=== PATIENT | female | born 1970 | race American Indian/Alaskan Native ===

== ENCOUNTER 2016-11-22 16:50 | Emergency (ER) | payer BC ==
[2016-11-22 16:57] VITALS: BMI 45.8
[2016-11-22 17:02] VITALS: BP 147/100; PULSE 98; RESP 19; TEMP 99; O2SAT 96
--- NOTE | 2016-11-22 17:50 | ED PDOC ---
Arrival/HPI - General Chief Complaint: Finger,Hand,&Wrist Time Seen by Provider: 11/22/16 17:05 Historian: Patient - History of Present Illness Narrative History of Present Illness (Text): 11/22/16 17:41 This is a very pleasant 46 AA F PMHx HTN, HLD, Borderline DM, and fibroids c/o R thumb swelling. Patient states that she woke up on Sunday with crampy, non radiating pain of 5/10 severity, for which she did not take anything at home. She woke up this morning with mild swelling in her R thumb as well as the pain. She was able to go to work today - she uses a computer at work and was able to effectively perform all of her tasks. Patient states that she has full ROM in her thumb. Pt denies f/ch associated with the swelling and pain. No further complaints PMD: Dr. Chance Christensen at [facility] [place] 11/22/16 18:07 Past Medical History - Infectious Disease Hx of Infectious Diseases: None - Cardiac Hx Cardiac Disorders: Yes Hx Hypertension: Yes - Pulmonary Hx Respiratory Disorders: No - Neurological Hx Neurological Disorder: No - HEENT Hx HEENT Disorder: No - Renal Hx Renal Disorder: No - Endocrine/Metabolic Hx Endocrine Disorders: No - Hematological/Oncological Hx Blood Disorders: No - Integumentary Hx Dermatological Disorder: No - Musculoskeletal/Rheumatological Hx Musculoskeletal Disorders: No - Gastrointestinal Hx Gastrointestinal Disorders: No - Genitourinary/Gynecological Hx Genitourinary Disorders: No - Psychiatric Hx Psychophysiologic Disorder: Yes Hx Substance Use: No Other/Comment: fibroids - Anesthesia Hx Anesthesia: No Family/Social History - Physician Review Nursing Documentation Reviewed: Yes Family/Social History: Diabetes, Hypertension Smoking Status: Never Smoked Hx Alcohol Use: Yes Frequency of alcohol use: Socially Hx Substance Use: No Allergies/Home Meds Allergies/Adverse Reactions: Allergies No Known Allergies Allergy (Verified 11/22/16 16:57) Home Medications: Home Meds Medication Instructions Recorded Confirmed Rosuvastatin Calcium [Crestor] 5 mg PO DAILY 11/22/16 11/22/16 Review of Systems - Physician Review All systems were reviewed & negative as marked: Yes - Review of Systems Constitutional: Normal. absent: Weight Change, Fevers, Night Sweats Eyes: Normal. absent: Vision Changes, Photophobia ENT: Normal. absent: Hearing Changes, TMJ Pain, Sinus Congestion Respiratory: Normal. absent: SOB, Cough, Sputum, Wheezing Cardiovascular: Normal. absent: Chest Pain, Palpitations, Edema, Calf Pain, MALIK Gastrointestinal: Normal. absent: Abdominal Pain, Diarrhea, Nausea, Vomiting Genitourinary Female: Normal. absent: Dysuria, Frequency, Hematuria Musculoskeletal: Other (thumb swelling and pain). absent: Arthralgias, Back Pain, Neck Pain Skin: Normal. absent: Pruritis, Laceration, Abscess Neurological: Normal. absent: Headache, Dizziness, Focal Weakness Endocrine: Normal. absent: Diaphoresis, Polyuria, Polydipsia Hemo/Lymphatic: Normal. absent: Adenopathy, Easy Bleeding, Easy Bruising Psychiatric: Normal. absent: Anxiety, Depression Physical Exam Vital Signs Reviewed: Yes Vital Signs Temp Pulse Resp BP Pulse Ox 11/22/16 17:00 99.0 F 98 H 19 147/100 H 96 Temperature: Afebrile Blood Pressure: Hypertensive Pulse: Regular Respiratory Rate: Normal Appearance: Positive for: Well-Appearing, Non-Toxic, Comfortable Pain Distress: None Mental Status: Positive for: Alert and Oriented X 3 - Systems Exam Head: Present: Atraumatic, Normocephalic Pupils: Present: PERRL Extroacular Muscles: Present: EOMI Conjunctiva: Present: Normal Mouth: Present: Moist Mucous Membranes Neck: Present: Normal Range of Motion Respiratory/Chest: Present: Clear to Auscultation, Good Air Exchange. No: Respiratory Distress, Accessory Muscle Use Cardiovascular: Present: Regular Rate and Rhythm, Normal S1, S2. No: Murmurs Abdomen: Present: Normal Bowel Sounds. No: Tenderness, Distention, Peritoneal Signs Back: Present: Normal Inspection Upper Extremity: Present: Other (R thumb mild erythema on anterior aspect, mild edema around PIP joint, mild TTP Patient still has full ROM, no tenderness with flexion/extension of the thumb.). No: Cyanosis, Edema Lower Extremity: Present: Normal Inspection. No: Edema Neurological: Present: GCS=15, CN II-XII Intact, Speech Normal Skin: Present: Warm, Dry, Normal Color. No: Rashes Psychiatric: Present: Alert, Oriented x 3, Normal Insight, Normal Concentration Medical Decision Making ED Course and Treatment: Assessed 11/22/16 17:00 Impression: 46 F w/ PMhx HTN HLD presents with 3 day duration of thumb pain and 1 day duration of mild thumb swelling Plan: - Toradol for pain stat - Reassess Reassessed 11/22/16 18:16 - Pain improved - Send patient home on Naproxen for pain - Send patient home on Clindamycin for empiric therapy - Instruct patient to follow up with PMD - Presentation not consistent with flexor tendon tenosynovitis at this time - patient cautioned and instructed on return precautions - Patient d/c home 11/22/16 18:41 - Medication Orders Current Medication Orders: Discontinued Medications Ketorolac Tromethamine (Toradol) 10 mg IM STAT STA Stop: 11/22/16 17:39 Last Admin: 11/22/16 17:44 Dose: 10 mg Disposition/Present on Arrival - Present on Arrival Any Indicators Present on Arrival: No History of DVT/PE: No History of Uncontrolled Diabetes: No Urinary Catheter: No History of Decub. Ulcer: No History Surgical Site Infection Following: None - Disposition Have Diagnosis and Disposition been Completed?: Yes Diagnosis: Thumb swelling Disposition: HOME/ ROUTINE Disposition Time: 18:00 Condition: IMPROVED Additional Instructions: Ms. Coleman, thank you for letting us take care of you today. Your providers were Dr. Conway and Dr. Perdomo. You were treated for thumb swelling and pain. The emergency medical care you received today was directed at your acute symptoms. If you were prescribed any medication, please fill it and take as directed. It may take several days for your symptoms to resolve. Return to the Emergency Department if your symptoms worsen, do not improve, or if you have any other problems. Please contact your doctor or call one of the physicians/clinics you have been referred to that are listed on the Patient Visit Information form that is included in your discharge packet. Bring any paperwork you were given at discharge with you along with any medications you are taking to your follow up visit. Our treatment cannot replace ongoing medical care by a primary care provider (PCP) outside of the emergency department. Thank you for allowing the [facility] team to be part of your care today. If you had an X-Ray or CT scan: A Radiologist will review the ED reading if any change in treatment is needed we will contact you. If you had a blood, urine, or wound culture: It will take several days for the results, if any change in treatment is needed we will contact you. If you had an STI test: It will take 48 hours for the results. Please call after 1 week if you have not heard back. Prescriptions: Clindamycin [Cleocin] 300 mg PO Q6 #32 cap Naproxen 500 mg PO BID #14 tab Referrals: Chance Christensen MD [Primary Care Provider] - Follow up with primary Forms: [employer] (Croatian)
== END 2016-11-22 18:04 | disposition home or self-care (01) ==
LOC: ED 16:50
DX: M79.89 Other specified soft tissue disorders (principal)
CPT/HCPCS: 96372; 99284; J1885

== ENCOUNTER 2018-06-15 12:32 | Outpatient (CLI) | payer BC | END 2018-06-15 12:33 | disposition home or self-care (01) | LOC: RAD 12:32 ==